=== PATIENT | female | born 1930 | race Hispanic/Latino ===

== ENCOUNTER 2018-03-28 13:08 | Emergency (ER) | payer MEDICARE, BC ==
[2018-03-28 14:30] VITALS: BMI 17.1
--- NOTE | 2018-03-28 15:55 | ED PDOC ---
Arrival/HPI - General Chief Complaint: Hip Pain Time Seen by Provider: 03/28/18 14:49 Historian: Patient, Family - History of Present Illness Narrative History of Present Illness (Text): 03/28/18 14:49 Patient is an 87 year old female with a past medical history of CVA, who presents to the emergency department with complaints of pain to right buttocks, right thigh, and right pelvis s/p mechanical fall at home 5 days prior to arrival. Patient states she was placing her raincoat away when she became tangled in her bed sheets and landed on her right buttocks. The patient denies any head injury or loss of consciousness at the time. Patient states she was able to ambulate with her walker following the incident. Her pain is worsened when sitting or standing. The patient denies fevers, chills, headache, dizziness, chest pain, shortness of breath, dyspnea on exertion, cough, abdominal pain, nausea, vomiting, diarrhea, back pain, neck pain, or any other complaint. Time/Duration: < week Symptom Onset: Sudden Symptom Course: Unchanged Activities at Onset: Light Context: Home Past Medical History - Provider Review Nursing Documentation Reviewed: Yes - Past History Past History: No Previous - Infectious Disease Hx of Infectious Diseases: None - Cardiac Hx Hypertension: Yes - Neurological HX Cerebrovascular Accident: Yes - Musculoskeletal/Rheumatological Hx Falls: No - Gastrointestinal Hx Gastrointestinal Disorders: Yes (APPENDECTOMY) - Genitourinary/Gynecological Hx Genitourinary Disorders: No Hx Reproductive Disorders: No - Psychiatric Hx Substance Use: No - Surgical History Hx Appendectomy: Yes (at age 6) - Anesthesia Hx Anesthesia: Yes Hx Anesthesia Reactions: No Hx Malignant Hyperthermia: No Family/Social History - Physician Review Nursing Documentation Reviewed: Yes Family/Social History: No Known Family HX Smoking Status: Never Smoked Hx Alcohol Use: No Hx Substance Use: No Allergies/Home Meds Allergies/Adverse Reactions: Allergies No Known Allergies Allergy (Verified 02/04/15 17:39) Home Medications: Home Meds Medication Instructions Recorded Confirmed Cholecalciferol (Vitamin D3) 1 tab PO DAILY 03/28/18 03/28/18 [Vitamin D3] Losartan Potassium 1 tab PO DAILY 03/28/18 03/28/18 Review of Systems - Physician Review All systems were reviewed & negative as marked: Yes - Review of Systems Constitutional: absent: Fevers, Night Sweats Respiratory: absent: SOB, Cough Cardiovascular: absent: Chest Pain Gastrointestinal: absent: Abdominal Pain, Diarrhea, Nausea, Vomiting Musculoskeletal: Other (Right side pelvic, buttocks, and thigh pain ). absent: Back Pain, Neck Pain Neurological: absent: Headache, Dizziness Physical Exam - Physical Exam Narrative Physical Exam (Text): 03/28/18 14:49 Gen: VS reviewed, alert, well developed, well nourished, nontoxic, mild distress. ENT: normal pharynx. Eye: EOMI, PERRL. Neck: no JVD, supple, no adenopathy. CV: regular rate, regular rhythm, no rubs, no murmur, no gallops, S1, S2, pulses equal and strong. Pulm: no distress, clear to auscultation, no wheeze, no rhonchi, breath sounds equal, no rales. Abd: soft, nontender, no guarding, no rebound, no rigidity, normal bowel sounds. Ext: mild right hip pain w/ external rotation. No pain with compression. No tenderness to palpation, bruising, or deformity. No edema. Skin: good color, no rash, no cyanosis. Psych: responds appropriately to questions, normal affect. Neuro: oriented x 3, CN2-12 intact grossly, motor intact, sensation intact. Vital Signs Reviewed: Yes Vital Signs Temp Pulse Resp BP Pulse Ox 03/28/18 14:37 99.1 F 97 H 18 158/73 H 95 Temperature: Afebrile Blood Pressure: Normal Pulse: Regular Respiratory Rate: Normal Appearance: Positive for: Well-Appearing, Non-Toxic, Comfortable Pain Distress: None Mental Status: Positive for: Alert and Oriented X 3 Medical Decision Making ED Course and Treatment: 03/28/18 15:38 Impression: Patient is a 87 year old female who presents to the Emergency department with right pelvic, right thigh, and right buttocks pain after falling in her home. Plan: - Right Hip X-Ray - CT Pelvis -- Reassess and disposition Prior Visits: Notes and results from previous visits were reviewed. 03/28/18 16:56 - RAD Interpretation Radiology Orders: 03/28/18 15:38 Hip right [HIP MIN 4V W/ PELVIS RT] [RAD] Stat - Scribe Statement The provider has reviewed the documentation as recorded by the Arash Glez training with Tasfia All medical record entries made by the Scribe were at my direction and personally dictated by me. I have reviewed the chart and agree that the record accurately reflects my personal performance of the history, physical exam, medical decision making, and the department course for this patient. I have also personally directed, reviewed, and agree with the discharge instructions and disposition. Disposition/Present on Arrival - Present on Arrival Any Indicators Present on Arrival: No History of DVT/PE: No History of Uncontrolled Diabetes: No Urinary Catheter: No History of Decub. Ulcer: No History Surgical Site Infection Following: None - Disposition Have Diagnosis and Disposition been Completed?: Yes Diagnosis: Contusion, hip Disposition: HOME/ ROUTINE Disposition Time: 19:43 Patient Plan: Discharge Condition: STABLE Additional Instructions: follow up with the orthopedic doctor as discussed. Referrals: [facility] [Outside] - Follow up with primary Forms: [employer] (Martiniquais)
--- NOTE | 2018-03-28 18:42 | CT ---
Date of service: 03/28/2018 PROCEDURE: CT Pelvis without contrast HISTORY: Posttraumatic right hip pain. Fracture suspected COMPARISON: March 28, 2018 pelvis right hip radiographs TECHNIQUE: Contiguous axial images of the pelvis . No intravenous or oral contrast given. Coronal and sagittal reformats generated. Radiation dose: Total exam DLP = 154.84 mGy-cm. This CT exam was performed using one or more of the following dose reduction techniques: Automated exposure control, adjustment of the mA and/or kV according to patient size, and/or use of iterative reconstruction technique. FINDINGS: BLADDER: Unremarkable. No mass. REPRODUCTIVE ORGANS: Unremarkable. VISUALIZED BOWEL: Unremarkable. PERITONEUM: Unremarkable, as visualized. No free fluid. No free air. LYMPH NODES: Unremarkable. No enlarged lymph nodes. BONES: No fracture or focal lesion. Moderate and symmetrical degenerative changes both hips. VASCULATURE: No aortic atherosclerotic calcification or mural plaque present. OTHER FINDINGS: Fecal impaction noted. IMPRESSION: No acute findings related to/ accounting for the clinical presentation. Additional benign and/or incidental findings described above.
--- NOTE | 2018-03-28 18:49 | RAD ---
Date of service: 03/28/2018 PROCEDURE: Pelvis right hip. HISTORY: fall, right hip pain COMPARISON: March 28, 2018 CT scan pelvis TECHNIQUE: Standard protocol for this study/examination. FINDINGS: There are no osseous abnormalities to suggest fracture. The pelvic ring is intact. Preserved femoral-acetabular relationship. Negative study for protrusio, subluxation or dislocation. Degenerative changes: Mild and symmetrical. IMPRESSION: No acute findings related to/ accounting for the clinical presentation.
[2018-03-28 19:52] VITALS: BP 146/72; PULSE 78; RESP 16; TEMP 98.6; O2SAT 100
--- NOTE | 2018-03-29 12:37 | CARD ---
APPROVED REPORT Date of service: 03/28/2018 EKG Measurement Heart [id number] <Conclusion> Normal sinus rhythm Low voltage QRS Septal infarct, age Old? Abnormal ECG
== END 2018-03-28 19:51 | disposition home or self-care (01) ==
LOC: ED 13:08
DX: S70.01XA Contusion of right hip, initial encounter (principal); W19.XXXA Unspecified fall, initial encounter; Y92.009 Unspecified place in unspecified non-institutional (private) residence as the place of occurrence of the external cause; I10 Essential (primary) hypertension; Z86.73 Personal history of transient ischemic attack (TIA), and cerebral infarction without residual deficits